=== PATIENT | male | born 1980 | race Two or more races ===

== ENCOUNTER 2018-06-27 14:10 | Emergency (ER) | payer OTHER ==
[~2018-06-27] VITALS: Ht 165.1 cm; Wt 70.3 kg
[2018-06-27] MEDS ORDERED: DIPHTH,PERTUSS(ACELL),TET TOX 0.5 ML DISP.SYRIN. VAX IM ONE (14:45)
[2018-06-27 14:54] VITALS: BP 127/82
--- NOTE | 2018-06-27 14:58 | PHYS DOC ---
Past History Past Medical History: No Pertinent History Past Surgical History: No Surgical History Alcohol Use: None Drug Use: None Adult General Chief Complaint Chief Complaint: LACERATION/AVULSION HPI HPI 37-year-old male presents with lacerations of his scalp. He works at a local [employer] and when he raised the garage door, the windows with the top of the door shattered and glass struck his head on the way down. The patient was not knocked unconscious. He was not knocked ground. He has a laceration on the left side of his head and the right side of his head. He denies any other injuries. He has no nausea, vomiting, headache or dizziness. Review of Systems Review of Systems Constitutional: Denies fever or chills [] Eyes: Denies change in visual acuity, redness, or eye pain [] HENT: Denies nasal congestion or sore throat [] Respiratory: Denies cough or shortness of breath [] Cardiovascular: No additional information not addressed in HPI [] GI: Denies abdominal pain, nausea, vomiting, bloody stools or diarrhea [] : Denies dysuria or hematuria [] Musculoskeletal: Denies back pain or joint pain [] Integument: Lacerations of the forehead[] Neurologic: Denies headache, focal weakness or sensory changes [] Endocrine: Denies polyuria or polydipsia [] All other systems were reviewed and found to be within normal limits, except as documented in this note. Current Medications Current Medications Current Medications Medications (Trade) Dose Ordered Sig/Edgar Start Time Stop Time Status Last Admin Dose Admin Diphtheria/ Tetanus/Acell Pertussis (Boostrix) 0.5 ml ONCE ONCE 06/27/18 14:45 06/27/18 14:46 DC 06/27/18 14:47 0.5 ML Allergies Allergies Allergies Coded Allergies Type Severity Reaction Last Updated Verified No Known Drug Allergies 06/27/18 No Physical Exam Physical Exam Constitutional: Well developed, well nourished, no acute distress, non-toxic appearance. [] HENT: Normocephalic, atraumatic, bilateral external ears normal, oropharynx moist, no oral exudates, nose normal. [] Eyes: PERRLA, EOMI, conjunctiva normal, no discharge. [] Neck: Normal range of motion, no tenderness, supple, no stridor. [] Cardiovascular:Heart rate regular rhythm, no murmur [] Lungs & Thorax: Bilateral breath sounds clear to auscultation [] Abdomen: Bowel sounds normal, soft, no tenderness, no masses, no pulsatile masses. [] Skin: 2 superficial lacerations each 4 cm long, 1 on the right anterior scalp and 1 on the left anterior scalp.[] Back: No tenderness, no CVA tenderness. [] Extremities: No tenderness, no cyanosis, no clubbing, ROM intact, no edema. [] Neurologic: Alert and oriented X 3, normal motor function, normal sensory function, no focal deficits noted. [] Psychologic: Affect normal, judgement normal, mood normal. [] Current Patient Data Vital Signs Vital Signs Date Time Temp Pulse Resp B/P (MAP) Pulse Ox O2 Delivery O2 Flow Rate FiO2 06/27/18 14:15 97.3 93 18 99 Room Air EKG EKG [] Radiology/Procedures Radiology/Procedures [] Course & Med Decision Making Course & Med Decision Making Pertinent Labs and Imaging studies reviewed. (See chart for details) The patient's lacerations were only partial thickness. Bleeding was controlled. He is here. Note below for more details. We have given him the teeth. He is stable for discharge at this time. [] Dragon Disclaimer Dragon Disclaimer This electronic medical record was generated, in whole or in part, using a voice recognition dictation system. Laceration Repair Lac Repair Indication: 2 linear lacerations of the anterior scalp each 4 cm in length. Procedure: Verbal consent was obtained for the patient to repair his lacerations with skin glue. The lacerations were thoroughly cleansed with saline. No foreign objects were found. I placed 2 layers of Dermabond on each laceration. There were 4 cm in length each. There was good skin approximation. There was no bleeding. No dressing was necessary due to complete covered with skin glue. Total repaired wound length: 4 cm, 4 cm. Other Items: None The patient tolerated the procedure well. Complications: [none]. Departure Departure: Impression: Primary Impression: Laceration of scalp without complication Disposition: HOME, SELF-CARE Condition: STABLE Patient Instructions: Laceration Care, Adult, [id number] Problem Qualifiers Primary Impression: Laceration of scalp without complication Encounter type: initial encounter Qualified Codes: S01.01XA - Laceration without foreign body of scalp, initial encounter HERMINIO MELTON DO Jun 27, 2018 14:58
== END 2018-06-27 15:07 | disposition home or self-care (01) ==
LOC: ER 14:10
DX: S01.01XA Laceration without foreign body of scalp, initial encounter (principal); W25.XXXA Contact with sharp glass, initial encounter; Y93.89 Activity, other specified; Y92.59 Other trade areas as the place of occurrence of the external cause; Y99.8 Other external cause status
CPT/HCPCS: 12004; 90471; 90715; 99284-25